=== PATIENT | female | born 1975 | race Caucasian/White ===

== ENCOUNTER 2016-09-07 15:35 | Emergency (ER) | payer OTHER ==
[~2016-09-07] VITALS: Ht 170.2 cm; Wt 55.8 kg
[~2016-09-07 15:35] MED LIST: BACTRIM DS 8001 TAB PO; CIPROFLOXACIN250 M2 PO; CLONAZEPAM1 MG PO; CYMBALTA60 M1 PO; CYMBALTA60 MG PO; KEFLEX500 MG PO; LORAZEPAM1 MG PO; LORTAB 5/3251 TAB PO; LYRICA50 MG PO; MOTRIN800 MG PO; PERCOCET 325 MG1 TA2 PO; VYVANSE70 M1 PO; ZOLPIDEM TARTRA10 MG PO
--- NOTE | 2016-09-07 16:10 | ED GI/GU/ABDOMINAL COMPLAINT ---
History of Present Illness General Chief Complaint: Abdominal Pain/Flank Pain Stated Complaint: FLANK PAIN Source: patient, old records Exam Limitations: no limitations Vital Signs & Intake/Output Vital Signs & Intake/Output Vital Signs Date Time Temp Pulse Resp B/P B/P Pulse O2 O2 Flow FiO2 Mean Ox Delivery Rate 09/07 1756 96.2 89 18 113/69 100 Room Air 09/07 1545 97.9 118 18 124/79 99 Room Air Allergies Coded Allergies: NO KNOWN ALLERGIES (01/05/15) Reconcile Medications Biotin (Meribin) (Unknown Strength) CAPSULE (Unknown Dose) PO DAILY SUPPLEMENT (Reported) Calcium Carb/D3/Magnesium/Zinc (Jj Mag Zinc + D3 Tablet) (Unknown Strength) TABLET (Unknown Dose) PO DAILY SUPPLEMENT (Reported) Cholecalciferol (Vitamin D3) (Vitamin D) (Unknown Strength) CAPSULE (Unknown Dose) PO DAILY SUPPLEMENT (Reported) Cyanocobalamin (Vitamin B-12) (Unknown Strength) TABLET (Unknown Dose) PO DAILY SUPPLEMENT (Reported) Dicyclomine Hydrochloride (Bentyl) 10 MG CAPSULE 1 CAP PO TID PRN pain Duloxetine HCl (Cymbalta) 60 MG CAPSULE.DR 2 CAP PO DAILY MENTAL HEALTH ( Reported) Lisdexamfetamine Dimesylate (Vyvanse) 70 MG CAPSULE 1 CAP PO QAM ADHD ( Reported) Multivitamin (Multi-Day Vitamins) 1 EACH TABLET 1 TAB PO DAILY SUPPLEMENT ( Reported) Ondansetron (Zofran Odt) 4 MG TAB.RAPDIS 1 TAB SL TID PRN nausea Pantoprazole Sodium (Protonix) 40 MG TABLET.DR 1 TAB PO DAILY gastritis Triage Note: PT TO ED FOR L SIDED FLANK PAIN INTERMITTENTLY SINCE MONDAY, REPORTING WORSENING TODAY. HX OF PYELO "BUT THIS FEELS DIFFERENT" DENIES ANY URINARY S/S, REPORTING INTERMITTENT MILD NAUSEA. Triage Nurses Notes Reviewed? yes ? n Is pt currently ? No Onset: Abrupt Duration: day(s): (3), getting worse, intermittent Timing: recent history Quality/Severity: aching, moderate, sharpness Severity Numbers: 10 Location: left flank Radiation: no radiation Activities at Onset: none No Modifying Factors: none Associated Symptoms: denies HPI: 40-year-old female with previous history of pyelonephritis gastric bypass appendectomy cholecystectomy presents complaining intermittent 3 day history of left flank pain that is not constant worse over the past 3 hours. She denies any known injury or trauma she reports to nausea secondary to pain. The pain is nonradiating no vomiting no diarrhea. She took a Proventil without improvement she states this does not feel like her pyelonephritis which she's had in the past there are no urinary symptoms. No sick contacts. No modifying factors or associated symptoms otherwise. (ALINE ONEIL) Past History Travel History Traveled to [place] past 21 day No Medical History Any Pertinent Medical History? 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 No (ALINE ONEIL) Review of Systems Review of Systems Constitutional: Reports: see HPI. All Other Systems: Reviewed and Negative Comments Review of systems: See HPI, All other systems negative. Constitutional, no chills no fever, no malaise HEENT: No visual changes no sore throat no congestion, Cardiovascular: No chest pain , no palpitation Skin: no rashes, no change in skin Respiratory: No dyspnea no cough no sputum GI: nausea no vomiting, no diarrhea, : No dysuria No hematuria, no frequency, no discharge Muscle skeletal: No joint pain, no joint swelling, no back pain, no neck pain, Neurologic: No numbness no headache Psych: No stress Heme/endocrine: No bruising Immunology: No lymphadenopathy (ALINE ONEIL) Physical Exam Physical Exam General Appearance: well developed/nourished, no apparent distress, alert Gastrointestinal: soft, non-tender Comments: Well-developed well-nourished person in no acute distress HEENT: Normal EENT exam; PERRL, EOMI, HEAD is atraumatic. moist mucous membranes. Neck: Supple, normal range of motion Back: Nontender, left CVA tenderness. Full range of motion Cardiovascular: Regular rate and rhythms no murmurs rubs Respiratory: No respiratory distress. Patient speaking in full complete sentences. Breath sounds clear to auscultation bilaterally: NO W/R/R Abdomen: Soft, nontender nondistended, no appreciable organomegaly. Normal bowel sounds. No rebound/guarding, Extremity: No edema, full range of motion of extremities Neuro: Alert oriented x3, motor sensory normal, There were no obvious focal neurologic abnormalities. Skin: No appreciable rash on exposed skin, skin is warm and dry. Psych: Mood and affect is normal, memory and judgment is normal. Core Measures ACS in differential dx? No Severe Sepsis Present: No Septic Shock Present: No (EDGARDO GARRISON,ALINE) Progress Differential Diagnosis: bowel obstruction, colon cancer, diverticulitis, ectopic , gastritis, inflamm bowel dis, kidney stone, pancreatitis, SBO Plan of Care: Orders Procedure Date/time Status LIPASE 09/07 161 Complete COMPREHENSIVE METABOLIC PANEL 09/07 161 Complete CBC WITHOUT DIFFERENTIAL 09/08 1611 Complete AMYLASE 09/07 161 Complete URINE 09/07 154 Complete URINALYSIS 09/07 154 Complete Laboratory Tests 09/07/16 1629: Anion Gap 11, Estimated GFR > 60, BUN/Creatinine Ratio 13.3, Glucose 76, Calcium 8.8, Total Bilirubin 0.6, AST 28, ALT 45, Alkaline Phosphatase 60, Total Protein 6.4, Albumin 4.0, Globulin 2.4, Albumin/Globulin Ratio 1.7, Amylase 44, Lipase 162, CBC w Diff NO MAN DIFF REQ, RBC 4.38, MCV 92.1, MCH 30.9, RDW 12.7, MPV 10.0, Gran % 58.5, Lymphocytes % 32.7, Monocytes % 5.9, Eosinophils % 2.4, Basophils % 0.5, Absolute Granulocytes 5.3, Absolute Lymphocytes 3.0, Absolute Monocytes 0.5, Absolute Eosinophils 0.2, Absolute Basophils 0, PUBS MCHC 33.5 09/07/16 1557: Urinalysis LIGHT H, Urine Color YEL, Urine Clarity HAZY H, Urine pH 6.0, Ur Specific [place] 1.020, Urine Protein NEG, Urine Ketones NEG, Urine Nitrite NEG, Urine Bilirubin NEG, Urine Urobilinogen 0.2, Ur Leukocyte Esterase NEG, Ur Microscopic SEDIMENT EXAMINED, Urine RBC 1-3, Urine WBC 1-3 H, Ur Epithelial Cells MANY H, Urine Bacteria MOD H, Urine Mucus PACKD H, Urine Hemoglobin NEG , Urine Glucose NEG, Urine Test NEGATIVE Labs ordered old records reviewed CAT scan ordered patient a Toradol Zofran and fluids Upon returning from CAT scan patient is now complaining of epigastric pain which she has not had with this pain that she brought her to the ER today Pepcid IV Zofran IV ordered she states the flank pain resolved with Toradol pending CAT scan 185 patient reports to feeling improved she's had no episodes of vomiting cigarette of Dilaudid and felt the pain information is provided for follow-up I discussed with the patient at length all of their results. I had an extensive conversation regarding need for close follow up with their primary care physician this week as well as return precautions. I answered all of their questions, they feel comfortable with the plan and follow-up care. I discussed with the patient/family the medications that they will receive. I gave them signs and symptoms that could indicate an adverse reaction. I have advised them to limit their activities until they can see how they respond to the medication. (EDGARDO GARRISON,ALINE) Diagnostic Imaging: Viewed by Me: CT Scan. Discussed w/RAD: CT Scan. Radiology Impression: PATIENT: JENNIFER HUDSON PRESENT AGE: 40 PATIENT ACCOUNT NO: [id number] : 73 LOCATION: [facility] ORDERING PHYSICIAN: ALINE GARRISON SERVICE DATE: 09/07/16 EXAM TYPE: CAT - CT ABD & PELVIS W/O IV CONTRAS EXAMINATION: CT ABDOMEN AND PELVIS WITHOUT CONTRAST CLINICAL INFORMATION: Left flank pain COMPARISON: 07/22/2015 TECHNIQUE: Multidetector volumetric imaging was performed from the superior aspect of the liver through the pubic symphysis. Sagittal and coronal reformatted images were obtained on the technologist's workstation. DLP: 269 mGy-cm FINDINGS: LUNG BASES : The visualized lung bases are unremarkable. LIVER, GALLBLADDER, AND BILIARY TREE: The liver is normal in size, shape, and attenuation. No focal hepatic lesion or biliary ductal dilatation is present. Post cholecystectomy. PANCREAS: Unremarkable. SPLEEN: Unremarkable. ADRENAL GLANDS: There is a 2.5 cm lipid rich left adrenal adenoma. The right adrenal gland is unremarkable. KIDNEYS AND URETERS: The kidneys are normal in size, shape, and attenuation. No hydronephrosis, hydroureter, or calculi seen. No perinephric stranding. BLADDER: Unremarkable. GASTROINTESTINAL TRACT: Postsurgical changes status post Urben-en-Y gastric bypass. No obstruction. No bowel wall thickening or inflammatory change. No free air or free fluid. ABDOMINAL WALL: No significant hernia is appreciated. LYMPH NODES: Normal. VASCULAR: Unremarkable. PELVIC VISCERA: The uterus and adnexa are unremarkable. OSSEOUS STRUCTURES: No acute or suspicious osseous abnormality. Multilevel degenerative changes of the spine. This is most prominent at L5-S1 with disc space narrowing and endplate sclerosis. IMPRESSION: No acute findings of the abdomen or pelvis. No hydronephrosis or nephrolithiasis. DICTATED BY: CLAY PALACIO MD DATE/TIME DICTATED:09/07/161732 ADVERTISING ASSOCIATE:SELVIN DATE/TIME TRANSCRIBED:09/07/161732 CONFIDENTIAL, DO NOT COPY WITHOUT APPROPRIATE AUTHORIZATION. <Electronically signed in Other Vendor System> SIGNED BY: CLAY PALACIO MD 09/07/16 174 Initial ED EKG: none (ALINE ONEIL) Departure Departure Time of Disposition: 1842 Disposition: HOME OR SELF CARE Condition: Stable Clinical Impression Primary Impression: Flank pain Referrals: VINCENT BAUTISTA,MU GARRISON,PRAMOD FRIEDMAN (PCP/Family) Additional Instructions: Follow-up with your primary care physician tomorrow as well as bariatric surgeon dr velasquez bland diet no fatty spicy greasy foods. bentyl, protonix for pain, zofran as directed for nausea. return to the ER with any concerns or worsening of your symptoms these were sent to [facility] Departure Forms: Customer Survey General Discharge Information Prescriptions: Current Visit Scripts Dicyclomine Hydrochloride (Bentyl) 1 CAP PO TID PRN pain #15 CAP Pantoprazole Sodium (Protonix) 1 TAB PO DAILY #14 TAB Ondansetron (Zofran Odt) 1 TAB SL TID PRN nausea #10 TAB (ALINE ONEIL) PA/MICROBIOLOGY SUPERVISOR Co-Sign Statement Statement: ED Attending supervision documentation- [] I saw and evaluated the patient. I have also reviewed all the pertinent lab results and diagnostic results. I agree with the findings and the plan of care as documented in the PA's/MICROBIOLOGY SUPERVISOR's documentation. [X] I have reviewed the ED Record and agree with the PA's/MICROBIOLOGY SUPERVISOR's documentation. [] Additions or exceptions (if any) to the PAs/MICROBIOLOGY SUPERVISOR's note and plan are summarized below: [] (JOSEPH HOWELL DO)
[2016-09-07 16:50] LABS: ABSOLUTE BASOPHIL COUNT 0 /CUMM (0.0-0.2); ABSOLUTE EOSINOPHIL COUNT 0.2 /CUMM (0.0-0.7); ABSOLUTE GRANULOCYTE CT 5.3 /CUMM (1.4-6.5); ABSOLUTE MONOCYTE COUNT 0.5 /CUMM (0.10-0.60); BASOPHIL % 0.5 % (0.0-2.0); EOSINOPHIL % 2.4 % (0-5); GRANULOCYTE % 58.5 % (42.2-75.2); HEMATOCRIT 40.4 % (37-47); MEAN CORPUSCULAR HGB 30.9 PG (27.0-31.0); MEAN CORPUSCULAR HGB CONC 33.5 G/DL (33.0-37.0); MEAN CORPUSCULAR VOLUME 92.1 FL (81.0-99.0); PLATELET COUNT 240 /CUMM (130-400); RBC DISTRIBUTION WIDTH 12.7 % (11.5-14.5); RED BLOOD CELL CT 4.38 /CUMM (4.20-5.40)
--- NOTE | 2016-09-07 17:42 | CT SCAN REPORT ---
EXAMINATION: CT ABDOMEN AND PELVIS WITHOUT CONTRAST CLINICAL INFORMATION: Left flank pain COMPARISON: 07/22/2015 TECHNIQUE: Multidetector volumetric imaging was performed from the superior aspect of the liver through the pubic symphysis. Sagittal and coronal reformatted images were obtained on the technologist's workstation. DLP: 269 mGy-cm FINDINGS: LUNG BASES: The visualized lung bases are unremarkable. LIVER, GALLBLADDER, AND BILIARY TREE: The liver is normal in size, shape, and attenuation. No focal hepatic lesion or biliary ductal dilatation is present. Post cholecystectomy. PANCREAS: Unremarkable. SPLEEN: Unremarkable. ADRENAL GLANDS: There is a 2.5 cm lipid rich left adrenal adenoma. The right adrenal gland is unremarkable. KIDNEYS AND URETERS: The kidneys are normal in size, shape, and attenuation. No hydronephrosis, hydroureter, or calculi seen. No perinephric stranding. BLADDER: Unremarkable. GASTROINTESTINAL TRACT: Postsurgical changes status post Ruben-en-Y gastric bypass. No obstruction. No bowel wall thickening or inflammatory change. No free air or free fluid. ABDOMINAL WALL: No significant hernia is appreciated. LYMPH NODES: Normal. VASCULAR: Unremarkable. PELVIC VISCERA: The uterus and adnexa are unremarkable. OSSEOUS STRUCTURES: No acute or suspicious osseous abnormality. Multilevel degenerative changes of the spine. This is most prominent at L5-S1 with disc space narrowing and endplate sclerosis. IMPRESSION: No acute findings of the abdomen or pelvis. No hydronephrosis or nephrolithiasis.
[2016-09-07] MEDS ORDERED: MULTI-DAY VITA1 EACH PO (17:50)
[2016-09-07] MEDS ORDERED: CAL MAG ZINC +1 EAC1 PO (17:51)
[2016-09-07] MEDS ORDERED: VITAMIN B-121000 MC3 PO (17:51)
[2016-09-07] MEDS ORDERED: VITAMIN D2000 UNIT PO (17:51)
[2016-09-07] MEDS ORDERED: MERIBIN5 M1 PO (17:52)
[2016-09-07 17:56] VITALS: BP 113/69
[2016-09-07] MEDS ORDERED: BENTYL10 M1 PO (18:45)
[2016-09-07] MEDS ORDERED: PROTONIX40 M3 PO (18:45)
[2016-09-07] MEDS ORDERED: ZOFRAN ODT4 M1 SL (18:45)
== END 2016-09-07 18:47 ==
LOC: ERH 15:35
PROVIDERS: Physician Assistant Medical
DX: R10.9 Unspecified abdominal pain (principal); R11.0 Nausea; F17.210 Nicotine dependence, cigarettes, uncomplicated
CPT/HCPCS: 74176; 81001; 81025; 96361; 96374; 96375; 96376; J1885; J2405

== ENCOUNTER 2017-06-14 07:50 | Emergency (ER) | payer OTHER ==
[~2017-06-14] VITALS: Ht 170.2 cm; Wt 51.7 kg
[~2017-06-14 07:50] MED LIST changes: +BACTRIM DS TAB1 EACH PO; +BENTYL10 M1 PO; +CAL MAG ZINC +1 EAC1 PO; +DAILY VALUE1 EACH PO; +MERIBIN5 M1 PO; +PROTONIX40 M3 PO; +VITAMIN B-121000 MC3 PO; +VITAMIN D2000 UNIT PO; +ZOFRAN ODT4 M1 SL
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
[2017-06-14 09:29] VITALS: BP 128/74
== END 2017-06-14 10:03 ==
LOC: ERH 07:50
DX: S01.01XA Laceration without foreign body of scalp, initial encounter (principal); W01.0XXA Fall on same level from slipping, tripping and stumbling without subsequent striking against object, initial encounter; Y92.9 Unspecified place or not applicable; Y93.9 Activity, unspecified
CPT/HCPCS: 90471; 90714